=== PATIENT | female | born 1955 | race Caucasian/White ===

== ENCOUNTER 2019-08-02 22:40 | Emergency (ER) | payer SELFPAY ==
[2019-08-02] MEDS ORDERED: ONDANSETRON HCL INJ/PF 4 MG/2 ML SDV IV ONE (22:52)
[2019-08-02 23:43] LABS: ABSOLUTE BASOPHILS # (AUTO) 0.1 10^3/uL (0.0-0.2); ABSOLUTE EOSINOPHILS # (AUTO) 0.3 10^3/uL (0.0-0.6); ABSOLUTE LYMPHOCYTES (AUTO) 2.6 10^3/uL (0.5-4.7); ABSOLUTE MONOCYTES (AUTO) 0.8 10^3/uL (0.1-1.4); ABSOLUTE NEUT (AUTO) 9.2 10^3/uL (1.7-8.2); BASOPHILS % (AUTO) 0.4 % (0-2); HEMATOCRIT 39.6 % (36.0-47.0); HEMOGLOBIN 13.7 g/dL (12.0-15.5); LYMPHOCYTES % (AUTO) 20.3 % (13-45); MEAN CORPUSCULAR HEMOGLOBIN 28.2 pg (27.0-33.4); MEAN CORPUSCULAR HGB CONC 34.7 g/dL (32.0-36.0); MEAN CORPUSCULAR VOLUME 81 fl (80-97); MONOCYTES % (AUTO) 6.2 % (3-13); PLATELET COUNT 404 10^3/uL (150-450); RED BLOOD COUNT 4.86 10^6/uL (3.72-5.28); RED CELL DISTRIBUTION WIDTH 14.3 % (11.5-14.0); SEGMENTED NEUTROPHILS % (AUTO) 71.1 % (42-78); TOTAL CELLS COUNTED % (AUTO) 100 %; WHITE BLOOD COUNT 12.9 10^3/uL (4.0-10.5)
[2019-08-03 00:02] LABS: ALBUMIN 4.2 g/dL (3.5-5.0); ALKALINE PHOSPHATASE 81 U/L (38-126); ANION GAP 12 (5-19); ASPARTATE AMINO TRANSFERASE 14 U/L (14-36); BILIRUBIN,DIRECT 0.3 mg/dL (0.0-0.4); BILIRUBIN,TOTAL 0.4 mg/dL (0.2-1.3); BLOOD UREA NITROGEN 13 mg/dL (7-20); CALCIUM 9.8 mg/dL (8.4-10.2); CARBON DIOXIDE 26 mmol/L (22-30); CHLORIDE 95 mmol/L (98-107); GLUCOSE 162 mg/dL (75-110); POTASSIUM 3.9 mmol/L (3.6-5.0); TOTAL PROTEIN 7.1 g/dL (6.3-8.2)
[2019-08-03] MEDS ORDERED: MORPHINE SULFATE 10 MG/ML INJ IV ONE (00:15)
[2019-08-03] MEDS ORDERED: NORMAL SALINE 1000 ML 1,000 ML IV ONE (00:16)
--- NOTE | 2019-08-03 00:16 | ER Document Report ---
ED GI/ - General Chief Complaint: Nausea/Vomiting Stated Complaint: VOMITING,ABDOMINAL PAIN Time Seen by Provider: 08/03/19 00:07 Notes: Patient is a 64-year-old female that comes emergency department for chief complaint of abdominal pain in the mid upper abdomen that started 3 days ago, she states it started gradually, then worsen, she states it has become much more severe and she vomited 4 times over the course of the day. She has had normal bowel movements, denies diarrhea, denies hematochezia or hematemesis. She reports some chills but denies fever. She does report some flank pain. She has had an appendectomy, cholecystectomy, hysterectomy, and reports that she had a "pre-aneurysmal dilation of the abdominal aorta". She denies alcohol or history of pancreatitis. TRAVEL OUTSIDE OF THE [place] IN LAST 30 DAYS: No - Related Data Allergies/Adverse Reactions: No Known Allergies Allergy (Unverified 08/02/19 23:12) Past Medical History - General Information source: Patient - Social History Smoking Status: Current Every Day Smoker Smoking Education Provided: Yes - <3 min Frequency of alcohol use: None Drug Abuse: None Lives with: Family Family History: Reviewed & Not Pertinent Patient has suicidal ideation: No Patient has homicidal ideation: No - Past Medical History Cardiac Medical History: Reports: Hx Hypertension Endocrine Medical History: Reports: Hx Diabetes Mellitus Type 2 Musculoskeletal Medical History: Reports Hx Arthritis Past Surgical History: Reports: Hx Appendectomy, Hx Cholecystectomy, Hx Hysterectomy, Hx Orthopedic Surgery - bilateral knee, Hx Thyroid Surgery Review of Systems - Review of Systems Constitutional: No symptoms reported EENT: No symptoms reported Cardiovascular: No symptoms reported Respiratory: No symptoms reported Gastrointestinal: See HPI Genitourinary: No symptoms reported Female Genitourinary: No symptoms reported Musculoskeletal: No symptoms reported Skin: No symptoms reported Hematologic/Lymphatic: No symptoms reported Neurological/Psychological: No symptoms reported Physical Exam - Vital signs Vitals: Temp Pulse Resp BP Pulse Ox 99.3 F 105 H 13 169/76 H 96 08/02/19 23:10 08/02/19 23:10 08/02/19 23:10 08/02/19 23:10 08/02/19 23:10 - Notes Notes: GENERAL: Appears slightly anxious and somewhat uncomfortable but is not in severe distress HEAD: Normocephalic, atraumatic. EYES: Pupils equal, round, and reactive to light. Extraocular movements intact. ENT: Oral mucosa dry, tongue midline. Oropharynx unremarkable. Airway patent. General upper abdominal tenderness, LUNGS: Clear to auscultation bilaterally, no wheezes, rales, or rhonchi. No respiratory distress. HEART: Regular rate and rhythm. No murmur ABDOMEN: Generalized upper abdominal tenderness with wincing. Lower abdomen is completely benign. Bowel sounds present. No severe guarding or rigidity. GENITOURINARY: Deferred EXTREMITIES: Moves all 4 extremities spontaneously. No edema, normal radial and dorsalis pedis pulses bilaterally. No cyanosis. BACK: no cervical, thoracic, lumbar midline tenderness. No saddle anesthesia, normal distal neurovascular exam. Moves all extremities in full range of motion. NEUROLOGICAL: Alert and oriented x3. Normal speech. Cranial nerves II through XII grossly intact. PSYCH: Slightly anxious SKIN: Warm, dry, normal turgor. No rashes or lesions noted. Course - Re-evaluation Re-evalutation: Patient uncomfortable and has mid to upper abdominal tenderness on exam, lower abdomen is benign. She does have tenderness but she does not have severe guarding or rebound tenderness. Vital signs are unremarkable. CBC shows mild leukocytosis, nonspecific given vomiting. Given IV fluids and pain medications. Chemistry unremarkable including lipase, troponin negative, EKG nonspecific, urinalysis indicates infection possibly. She does not have lower abdominal tenderness or flank pain. Because of her symptoms, age, reported history of possible aortic aneurysm decision was made to CAT scan the patient. CAT scan negative for acute findings, shows incidental findings including small nodules and calcification, I provided patient with a copy of the report. I suspect patient has gastritis. Patient was given medications p.o. and tolerated this without difficulty, tolerating fluids as well. She will be discharged with treatment for gastritis, discussed expectations, follow-up, return precautions. Patient states appreciation and agreement. Stable and well-appearing at time of discharge. - Vital Signs Vital signs: Temp Pulse Resp BP Pulse Ox 98.1 F 84 18 161/76 H 95 08/03/19 05:15 08/03/19 05:15 08/03/19 05:15 08/03/19 05:15 08/03/19 05:15 - Laboratory Result Diagrams: 08/02/19 23:30 08/02/19 23:30 Laboratory results interpreted by me: 08/02/19 08/02/19 08/03/19 23:30 23:30 02:00 WBC 12.9 H RDW 14.3 H Absolute Neuts (auto) 9.2 H Sodium 132.5 L Chloride 95 L Creatinine 0.44 L Glucose 162 H Ur Leukocyte Esterase MODERATE H - EKG Interpretation by Me Additional EKG results interpreted by me: EKG shows sinus rhythm at a rate of 95, normal axis, no T wave inversions or ST segment changes in consecutive leads. QTC of 438. Discharge - Discharge Clinical Impression: Upper abdominal pain Vomiting Qualifiers: Vomiting type: unspecified Vomiting Intractability: non-intractable Nausea pre sence: with nausea Qualified Code(s): R11.2 - Nausea with vomiting, unspecified Condition: Stable Disposition: HOME, SELF-CARE Additional Instructions: Your CAT scan does not show any concerning findings, your work-up is reassuring. Your symptoms and examination indicate gastritis/esophagitis (inflammation of your upper gastrointestinal tract). Take Phenergan for nausea, take Carafate and Pepcid as prescribed to help treat this, you can take the pain medication given and also additional Rolaids, Tums, Maalox, etc. if needed. You can take Tylenol for pain. Avoid NSAIDs, alcohol, smoking, caffeine, spicy food. Start with clear fluids, progress to bland diet. You appear to have a developing urinary tract infection as well, take Keflex as prescribed, we have a urine culture pending. Follow-up with primary care for additional evaluation and treatment including possible H. pylori testing or even endoscopy. Return if you worsen including uncontrolled vomiting, vomiting blood, black stools, severe pain, fever of 100.4 or greater, or any other concerning or worsening symptoms. Prescriptions: Sucralfate [Carafate 1 gm Tablet] 1 gm PO QID #20 tablet Cephalexin Monohydrate [Keflex 500 mg Capsule] 500 mg PO BID 7 Days #14 capsule Famotidine [Pepcid 20 mg Tablet] 20 mg PO BID #20 tablet Promethazine HCl [Phenergan 25 mg Tablet] 25 mg PO Q6H PRN #20 tablet PRN Reason:
[2019-08-03] MEDS ORDERED: METOCLOPRAMIDE HCL INJ/PF 10 MG/2 ML SDV IV ONE (00:42)
[2019-08-03] MEDS ORDERED: DIPHENHYDRAMINE HCL 50 MG/ML VIAL IV ONE (00:42)
[2019-08-03] MEDS ORDERED: HYDROMORPHONE HCL INJ/PF 2 MG/ML AMPULE IV ONE (01:46)
[2019-08-03 02:50] LABS: APPEARANCE,URINE CLEAR; BILIRUBIN,URINE NEGATIVE (NEGATIVE); COLOR,URINE YELLOW; GLUCOSE, URINE NEGATIVE (NEGATIVE); KETONES,URINE NEGATIVE (NEGATIVE); LEUKOCYTE ESTERASE,URINE MODERATE (NEGATIVE); NITRITE,URINE NEGATIVE (NEGATIVE); PROTEIN,URINE NEGATIVE (NEGATIVE); URINE SPECIFIC GRAVITY 1.012; UROBILINOGEN,URINE NEGATIVE mg/dL (<2.0)
--- NOTE | 2019-08-03 04:21 | RADIOLOGY REPORT (SQ) ---
CT abdomen and pelvis with contrast on 08/03/2019 3:31 AM CLINICAL INDICATION: Periumbilical abdominal pain radiating to back, vomiting TECHNIQUE: Multiple axial images are obtained throughout the abdomen and pelvis following the administration of IV contrast, 80 mL of Omnipaque 350 contrast was administered intravenously without complication. This exam was performed according to our departmental dose-optimization program, which includes automated exposure control, adjustment of the mA and/or kV according to patient size and/or use of iterative reconstruction technique. Total DLP is 2036.6 mGy*cm. COMPARISON: None FINDINGS: Abdomen: There are a few tiny less than 5 mm pulmonary nodules in the lung bases with no follow-up recommended per Fleischner Society recommendations 2017. There is minimal basilar atelectasis and/or scarring. Vascular calcifications are noted. The patient is status post cholecystectomy. Small bilateral parapelvic renal cysts are noted. Solid abdominal organs are otherwise unremarkable. There is no abdominal adenopathy. There is no free fluid or free air within the abdomen. The abdominal portion of the GI tract is unremarkable. Pelvis: The patient is status post hysterectomy. There is no free fluid in the pelvis. There is no pelvic adenopathy. The appendix is not visualized but no pericecal inflammatory changes are noted. Pelvic portion of the GI tract is unremarkable. Degenerative changes are noted in the spine. IMPRESSION: No acute abnormality.
[2019-08-03] MEDS ORDERED: FAMOTIDINE 20 MG TABLET PO ONE (04:30)
[2019-08-03] MEDS ORDERED: SUCRALFATE 1 GM TABLET PO ONE (04:30)
[2019-08-03] MEDS ORDERED: OXYCODONE-ACETAMINOPHEN 5-325 MG TABLET PO ONE (04:30)
[2019-08-03] MEDS ORDERED: HYDROCODONE/ACETAMINOPHEN 5-325 MG (6 TAB/ER DISP) PO PRN (04:57)
[2019-08-03 05:43] VITALS: BP 161/76
--- NOTE | 2019-08-03 17:06 | EKG REPORT ---
SEVERITY:- BORDERLINE ECG - SINUS RHYTHM BORDERLINE R WAVE PROGRESSION, ANTERIOR LEADS : Confirmed by: Belen Jurado MD 03-Aug-2019 17:05:49
== END 2019-08-03 05:15 | disposition home or self-care (01) ==
LOC: ER 22:40
DX: R10.10 Upper abdominal pain, unspecified (principal); R11.2 Nausea with vomiting, unspecified; Z90.49 Acquired absence of other specified parts of digestive tract; Z90.710 Acquired absence of both cervix and uterus; F17.200 Nicotine dependence, unspecified, uncomplicated; I10 Essential (primary) hypertension; E11.9 Type 2 diabetes mellitus without complications; F41.9 Anxiety disorder, unspecified
CPT/HCPCS: 93005; 99284; 96361; 96374; 96375; 36415; 87086; 83690; 85025; 80053; 81001; 84484; 74177; 93010; J1200; J2765; J2270; J1170; J2405; J7030

== ENCOUNTER 2019-08-19 10:46 | Inpatient (IN) | payer SELFPAY ==
--- NOTE | 2019-08-19 11:44 | ER Document Report ---
ED Medical Screen (RME) - General Chief Complaint: Abdominal Pain Stated Complaint: ABDOMINAL PAIN/BACK PAIN Time Seen by Provider: 08/19/19 11:38 Mode of Arrival: Ambulatory Information source: Patient TRAVEL OUTSIDE OF THE [place] IN LAST 30 DAYS: No - HPI Onset: Other - Progressive over 2 weeks Quality of pain: Cramping Pain Level: 3 - Related Data Allergies/Adverse Reactions: No Known Allergies Allergy (Unverified 08/02/19 23:12) Past Medical History - Past Medical History Cardiac Medical History: Reports: Hx Hypertension Endocrine Medical History: Reports: Hx Diabetes Mellitus Type 2 Musculoskeltal Medical History: Reports Hx Arthritis Past Surgical History: Reports: Hx Appendectomy, Hx Cholecystectomy, Hx H ysterectomy, Hx Orthopedic Surgery - bilateral knee, Hx Thyroid Surgery Physical Exam - Vital signs Vitals: Temp Pulse Resp BP Pulse Ox 97.5 F 99 16 184/79 H 97 08/19/19 10:51 08/19/19 10:51 08/19/19 10:51 08/19/19 10:51 08/19/19 10:51 - Abdominal Notes: This is a 64-year-old female who presented to the emergency room 2 weeks ago stating that she had abdominal pain they performed a CAT scan and she was told that she had gastritis as well as the beginnings of a UTI. She has not received any discomfort relief at all from medications provided that day and has in fact only gotten worse. She now has difficulty urinating. In the RME process it was determined to get lab work fluids and an x-ray for the provider in the back to determine whether or not they wanted to repeat the CAT scan. Course - Vital Signs Vital signs: Temp Pulse Resp BP Pulse Ox 97.5 F 99 16 184/79 H 97 08/19/19 10:51 08/19/19 10:51 08/19/19 10:51 08/19/19 10:51 08/19/19 10:51
[2019-08-19] MEDS ORDERED: CEFTRIAXONE INJ 1000 MG VIAL IM ONE (11:49)
[2019-08-19] MEDS ORDERED: NORMAL SALINE 1000 ML 1,000 ML IV PRN (11:49)
[2019-08-19] MEDS ORDERED: CEFTRIAXONE INJ 1000 MG VIAL IV ONE (11:59)
[2019-08-19] MEDS ORDERED: METOCLOPRAMIDE HCL INJ/PF 10 MG/2 ML SDV IV ONE (12:00)
--- NOTE | 2019-08-19 12:18 | RADIOLOGY REPORT (SQ) ---
EXAM DESCRIPTION: KUB/ABDOMEN (SINGLE VIEW) COMPLETED DATE/TIME: 08/19/2019 12:09 pm REASON FOR STUDY: pain COMPARISON: None. NUMBER OF VIEWS: One view. TECHNIQUE: Supine radiographic image of the abdomen acquired. LIMITATIONS: None. FINDINGS: BOWEL GAS PATTERN: Normal bowel gas pattern. No dilated loops. CALCIFICATIONS: No suspicious calcifications. SOFT TISSUES: No gross mass or suggestion of organomegaly. HARDWARE: None in the abdomen. BONES: No acute fracture. No worrisome bone lesions. OTHER: No other significant finding. IMPRESSION: NO RADIOGRAPHIC EVIDENCE FOR ACUTE ABDOMINAL DISEASE. TECHNICAL DOCUMENTATION: JOB ID: [id number] 2010 [employer]- All Rights Reserved Reading location - IP/workstation name: [email or web address]
[2019-08-19 12:40] LABS: APPEARANCE,URINE SLIGHTLY-CLOUDY; BILIRUBIN,URINE NEGATIVE (NEGATIVE); COLOR,URINE YELLOW; GLUCOSE, URINE NEGATIVE (NEGATIVE); KETONES,URINE 80 mg/dL (NEGATIVE); LEUKOCYTE ESTERASE,URINE SMALL (NEGATIVE); NITRITE,URINE NEGATIVE (NEGATIVE); PROTEIN,URINE NEGATIVE (NEGATIVE); URINE SPECIFIC GRAVITY 1.017; UROBILINOGEN,URINE NEGATIVE mg/dL (<2.0)
[2019-08-19 12:47] LABS: ADD MANUAL MICROSCOPIC YES
[2019-08-19] MEDS ORDERED: ONDANSETRON HCL 8 MG TABLET PO ONE (13:18)
[2019-08-19 13:41] LABS: ABSOLUTE BASOPHILS # (AUTO) 0.1 10^3/uL (0.0-0.2); ABSOLUTE EOSINOPHILS # (AUTO) 0.2 10^3/uL (0.0-0.6); ABSOLUTE LYMPHOCYTES (AUTO) 1.6 10^3/uL (0.5-4.7); ABSOLUTE MONOCYTES (AUTO) 0.7 10^3/uL (0.1-1.4); ABSOLUTE NEUT (AUTO) 9.7 10^3/uL (1.7-8.2); BASOPHILS % (AUTO) 0.8 % (0-2); EOSINOPHILS % (AUTO) 1.4 % (0-6); HEMATOCRIT 43.1 % (36.0-47.0); HEMOGLOBIN 14.9 g/dL (12.0-15.5); LYMPHOCYTES % (AUTO) 13.2 % (13-45); MEAN CORPUSCULAR HEMOGLOBIN 27.8 pg (27.0-33.4); MEAN CORPUSCULAR HGB CONC 34.6 g/dL (32.0-36.0); MEAN CORPUSCULAR VOLUME 81 fl (80-97); MONOCYTES % (AUTO) 5.6 % (3-13); PLATELET COUNT 471 10^3/uL (150-450); RED BLOOD COUNT 5.35 10^6/uL (3.72-5.28); TOTAL CELLS COUNTED % (AUTO) 100 %; WHITE BLOOD COUNT 12.2 10^3/uL (4.0-10.5)
[2019-08-19 13:42] LABS: ALBUMIN 4.2 g/dL (3.5-5.0); ALKALINE PHOSPHATASE 80 U/L (38-126); ANION GAP 10 (5-19); ASPARTATE AMINO TRANSFERASE 14 U/L (14-36); BILIRUBIN,TOTAL 0.4 mg/dL (0.2-1.3); BLOOD UREA NITROGEN 12 mg/dL (7-20); CALCIUM 9.7 mg/dL (8.4-10.2); CARBON DIOXIDE 31 mmol/L (22-30); CHLORIDE 82 mmol/L (98-107); GLUCOSE 148 mg/dL (75-110); POTASSIUM 4.8 mmol/L (3.6-5.0); TOTAL PROTEIN 6.7 g/dL (6.3-8.2)
--- NOTE | 2019-08-19 13:42 | ER Document Report ---
ED General - General Chief Complaint: Abdominal Pain Stated Complaint: ABDOMINAL PAIN/BACK PAIN Time Seen by Provider: 08/19/19 11:38 Mode of Arrival: Ambulatory Notes: Patient is a 64-year-old white female with a past medical history of diabetes, hypertension, status post cholecystectomy, appendectomy and hysterectomy who presents to the emergency department the chief complaint of upper abdominal discomfort. The patient notes that she was here at the end of July for the same complaint. States that since that time her symptoms have returned and worsened. She states after her visit here she was taking the medications prescribed, seem to be improving some while maintaining a clear liquid diet. She states after trying to eat some "raw vegetables" as her first introductory food after a clear liquid diet she began to feel bad again. She describes a right upper abdominal discomfort that waxes and wanes. States it is associated with nausea and vomiting. Denies any diarrhea or constipation. Denies any fever or recent travel. Denies any history of cardiovascular disease. TRAVEL OUTSIDE OF THE [place] IN LAST 30 DAYS: No - Related Data Allergies/Adverse Reactions: No Known Allergies Allergy (Unverified 08/02/19 23:12) Past Medical History - General Information source: Patient - Social History Smoking Status: Current Every Day Smoker Family History: Reviewed & Not Pertinent Patient has suicidal ideation: No Patient has homicidal ideation: No - Past Medical History Cardiac Medical History: Reports: Hx Hypertension Endocrine Medical History: Reports: Hx Diabetes Mellitus Type 2 Musculoskeletal Medical History: Reports Hx Arthritis Past Surgical History: Reports: Hx Appendectomy, Hx Cholecystectomy, Hx Hysterectomy, Hx Orthopedic Surgery - bilateral knee, Hx Thyroid Surgery Review of Systems - Review of Systems Gastrointestinal: Abdominal pain, Nausea, Vomiting -: Yes All other systems reviewed and negative Physical Exam - Vital signs Vitals: Temp Pulse Resp BP Pulse Ox 97.5 F 99 16 184/79 H 97 08/19/19 10:51 08/19/19 10:51 08/19/19 10:51 08/19/19 10:51 08/19/19 10:51 - General General appearance: Appears well, Alert In distress: None - HEENT Head: Normocephalic, Atraumatic Eyes: Normal Pupils: PERRL Ears: Normal Tympanic membrane: Normal Nasal: Normal Mouth/Lips: Normal Mucous membranes: Normal Pharynx: Normal Neck: Normal - Respiratory Respiratory status: No respiratory distress Chest status: Nontender Breath sounds: Normal Chest palpation: Normal - Cardiovascular Rhythm: Regular Heart sounds: Normal auscultation - Abdominal Inspection: Normal Distension: No distension Bowel sounds: Normal Tenderness: Tender - Right upper quadrant, right lower quadrant and left lower quadrant - Back Back: No: CVA tenderness - Neurological Neuro grossly intact: Yes Cognition: Normal Orientation: AAOx4 Clymer Coma Scale Eye Opening: Spontaneous Jayla Coma Scale Verbal: Oriented Clymer Coma Scale Motor: Obeys Commands Clymer Coma Scale Total: 15 Speech: Normal - Psychological Associated symptoms: Normal affect, Normal mood - Skin Skin Temperature: Warm Skin Moisture: Dry Skin Color: Normal Course - Re-evaluation Re-evalutation: 08/19/19 18:[address] Ashby, he will admit the patient in relation to her hyponatremia and intractable nausea and vomiting. Patient stable for admission at this time. - Vital Signs Vital signs: Temp Pulse Resp BP Pulse Ox 97.5 F 99 16 184/79 H 97 08/19/19 10:51 08/19/19 10:51 08/19/19 10:51 08/19/19 10:51 08/19/19 10:51 - Laboratory Result Diagrams: 08/19/19 13:00 08/19/19 17:25 Laboratory results interpreted by me: 08/19/19 08/19/19 08/19/19 12:08 13:00 13:00 WBC 12.2 H RBC 5.35 H Plt Count 471 H Absolute Neuts (auto) 9.7 H Seg Neutrophils % 79.0 H Sodium 123.3 L Chloride 82 L Carbon Dioxide 31 H Creatinine Glucose 148 H AST Creatine Kinase Lipase 498.9 H Urine Ketones 80 H Ur Leukocyte Esterase SMALL H 08/19/19 08/19/19 13:00 17:25 WBC RBC Plt Count Absolute Neuts (auto) Seg Neutrophils % Sodium 125.8 L Chloride 88 L Carbon Dioxide Creatinine 0.47 L Glucose 129 H AST 13 L Creatine Kinase < 20 L Lipase 1153.0 H Urine Ketones Ur Leukocyte Esterase Discharge - Discharge Clinical Impression: Hyponatremia, Intractable nausea and vomiting, Elevated lipase Abdominal pain Qualifiers: Abdominal location: upper abdomen, unspecified Qualified Code(s): R10.10 - Upper abdominal pain, unspecified Disposition: ADMITTED INPATIENT Admitting Provider: Symone (Hospitalist) Unit Admitted: Medical Floor
[2019-08-19 14:55] LABS: URINE AMPHETAMINES SCREEN NEGATIVE; URINE BARBITURATES SCREEN NEGATIVE; URINE COCAINE SCREEN NEGATIVE; URINE MARIJUANA (THC) SCREEN NEGATIVE; URINE METHADONE SCREEN NEGATIVE; URINE PHENCYCLIDINE SCREEN NEGATIVE
[2019-08-19 14:56] LABS: URINE BENZODIAZEPINES SCREEN UNCONFIRMED POSITIVE
[2019-08-19] MEDS ORDERED: NORMAL SALINE 1000 ML 1,000 ML IV ONE (15:18)
[2019-08-19] MEDS ORDERED: MORPHINE SULFATE 10 MG/ML INJ IV ONE (15:22)
[2019-08-19] MEDS ORDERED: PROMETHAZINE HCL 25 MG TABLET PO ONE (15:22)
[2019-08-19 15:56] LABS: VENOUS BLOOD BASE EXCESS -0.7 mmol/L; VENOUS BLOOD HCO3 24.3 mmol/L (20-32); VENOUS BLOOD PCO2 41.6 mmHg (35-63); VENOUS BLOOD PH 7.39 (7.30-7.42)
[2019-08-19] MEDS ORDERED: LORAZEPAM INJ 2 MG/1 ML VIAL IV ONE (17:42)
[2019-08-19 17:57] LABS: ALBUMIN 3.8 g/dL (3.5-5.0); ALKALINE PHOSPHATASE 79 U/L (38-126); ANION GAP 12 (5-19); ASPARTATE AMINO TRANSFERASE 13 U/L (14-36); BILIRUBIN,DIRECT 0.3 mg/dL (0.0-0.4); BILIRUBIN,TOTAL 0.3 mg/dL (0.2-1.3); BLOOD UREA NITROGEN 9 mg/dL (7-20); CALCIUM 8.8 mg/dL (8.4-10.2); CARBON DIOXIDE 26 mmol/L (22-30); CHLORIDE 88 mmol/L (98-107); GLUCOSE 129 mg/dL (75-110); POTASSIUM 4.1 mmol/L (3.6-5.0); TOTAL PROTEIN 6.6 g/dL (6.3-8.2)
[2019-08-19] MEDS ORDERED: METOCLOPRAMIDE HCL INJ/PF 10 MG/2 ML SDV IV PRN (18:37)
[2019-08-19] MEDS ORDERED: PROMETHAZINE HCL INJ 25 MG/1 ML VIAL IV PRN (18:37)
[2019-08-19] MEDS ORDERED: MAG HYDROX/AL HYDROX/SIMETH SUSP 30 ML UDCUP PO PRN (18:37)
[2019-08-19] MEDS ORDERED: MORPHINE SULFATE 10 MG/ML INJ IV PRN ×2 (18:44)
[2019-08-19] MEDS ORDERED: GLUCAGON,HUMAN RECOMB 1 MG INJ SUBCUT PRN (18:45)
[2019-08-19] MEDS ORDERED: DEXTROSE 40% GEL 15 GM TUBE PO PRN ×2 (18:45)
[2019-08-19] MEDS ORDERED: DEXTROSE 50%-WATER 25 GM/50 ML DISP.SYRIN IV PRN ×2 (18:45)
--- NOTE | 2019-08-19 19:02 | PDOC H&P ---
History of Present Illness Admission Date/PCP: 08/19/19 18:26 Patient complains of: Abdominal pain, nausea vomiting History of Present Illness: YAZMIN COON is a 64 year old female with a history of type 2 diabetes mellitus, hypertension who presents to the hospital with unresolved nausea and vomiting as well as right upper quadrant and epigastric pain. Her symptoms have been persisting for close to a month now. Complains of several episodes of nonb ilious nonbloody vomiting which worsened yesterday as well as some episodes of dry retching. Abdominal pain is described as a stabbing pain radiating to the back. Denies any fever or chills. Denies any urinary symptoms. Has had poor oral intake due to persistence of nausea and vomiting. Patient evaluated in the ER on 08/02/2019 for similar complaints at that time had no elevation in lipase. Past Medical History Cardiac Medical History: Reports: Hypertension Endocrine Medical History: Reports: Diabetes Mellitus Type 2 Musculoskeltal Medical History: Reports: Arthritis Past Surgical History Past Surgical History: Reports: Appendectomy, Cholecystectomy, Hysterectomy, Orthopedic Surgery - bilateral knee Social History Smoking Status: Current Every Day Smoker Frequency of Alcohol Use: Rare Hx Recreational Drug Use: No Hx Prescription Drug Abuse: No - Advance Directive Resuscitation Status: Full Code Family History Family History: DM, Hypertension Parental Family History Reviewed: Yes Children Family History Reviewed: NA Sibling(s) Family History Reviewed.: Yes Medication/Allergy Home Medications: Cephalexin Monohydrate [Keflex 500 mg Capsule] 500 mg PO BID 7 Days #14 capsule 08/03/19 Famotidine [Pepcid 20 mg Tablet] 20 mg PO BID #20 tablet 08/03/19 Promethazine HCl [Phenergan 25 mg Tablet] 25 mg PO Q6H PRN #20 tablet 08/03/19 Sucralfate [Carafate 1 gm Tablet] 1 gm PO QID #20 tablet 08/03/19 Allergies/Adverse Reactions: No Known Allergies Allergy (Unverified 08/02/19 23:12) Review of Systems Constitutional: PRESENT: fatigue. ABSENT: anorexia, fever(s) Eyes: ABSENT: visual disturbances Nose, Mouth, and Throat: ABSENT: headache(s) Cardiovascular: ABSENT: chest pain Respiratory: ABSENT: cough, dyspnea Gastrointestinal: PRESENT: abdominal pain, bloating, nausea, vomiting. ABSENT: coffee ground emesis, constipation, diarrhea, hematemesis, hematochezia, melena Integumentary: ABSENT: diaphoresis Neurological: ABSENT: confusion Psychiatric: PRESENT: anxiety Endocrine: ABSENT: polyuria Hematologic/Lymphatic: ABSENT: easy bleeding Physical Exam Vital Signs: Temp Pulse Resp BP Pulse Ox 97.5 F 99 16 184/79 H 97 08/19/19 10:51 08/19/19 10:51 08/19/19 10:51 08/19/19 10:51 08/19/19 10:51 Intake & Output 08/18/19 08/19/19 08/20/19 06:59 06:59 06:59 Intake Total 1999 Balance 1999 Weight 82.6 kg General appearance: PRESENT: no acute distress, cooperative Head exam: PRESENT: normocephalic Eye exam: PRESENT: EOMI Mouth exam: PRESENT: neck supple Neck exam: ABSENT: JVD Respiratory exam: PRESENT: clear to auscultation manuela, unlabored. ABSENT: tachypnea, wheezes Cardiovascular exam: PRESENT: +S1, +S2. ABSENT: diastolic murmur, systolic murmur, tachycardia GI/Abdominal exam: PRESENT: soft, tenderness - Upper abdomen mostly epigastric and RUQ. ABSENT: distended, firm, guarding, rebound, rigid Extremities exam: ABSENT: calf tenderness, pedal edema Musculoskeletal exam: PRESENT: ambulatory Neurological exam: PRESENT: alert, awake, oriented to person, oriented to place, oriented to time Psychiatric exam: ABSENT: agitated, anxious Focused psych exam: ABSENT: pressured speech Skin exam: ABSENT: jaundice Results Laboratory Results: 08/19/19 13:00 08/19/19 17:25 08/19/19 08/19/19 08/19/19 12:08 13:00 13:00 WBC 12.2 H RBC 5.35 H Hgb 14.9 Hct 43.1 MCV 81 MCH 27.8 MCHC 34.6 RDW 14.0 Plt Count 471 H Seg Neutrophils % 79.0 H VBG pH VBG pCO2 VBG HCO3 VBG Base Excess Sodium 123.3 L Potassium 4.8 Chloride 82 L Carbon Dioxide 31 H Anion Gap 10 BUN 12 Creatinine 0.54 Est GFR ( Amer) > 60 Glucose 148 H Calcium 9.7 Total Bilirubin 0.4 AST 14 Alkaline Phosphatase 80 Total Protein 6.7 Albumin 4.2 Lipase 498.9 H Urine Color YELLOW Urine Appearance SLIGHTLY-CLOUDY Urine pH 7.0 Ur Specific Goodman 1.017 Urine Protein NEGATIVE Urine Glucose (UA) NEGATIVE Urine Ketones 80 H Urine Blood NEGATIVE Urine Nitrite NEGATIVE Ur Leukocyte Esterase SMALL H Ur Squamous Epith Cells MANY 08/19/19 08/19/19 15:44 17:25 WBC RBC Hgb Hct MCV MCH MCHC RDW Plt Count Seg Neutrophils % VBG pH 7.39 VBG pCO2 41.6 VBG HCO3 24.3 VBG Base Excess -0.7 Sodium 125.8 L Potassium 4.1 Chloride 88 L Carbon Dioxide 26 Anion Gap 12 BUN 9 Creatinine 0.47 L Est GFR ( Amer) > 60 Glucose 129 H Calcium 8.8 Total Bilirubin 0.3 AST 13 L Alkaline Phosphatase 79 Total Protein 6.6 Albumin 3.8 Lipase 1153.0 H Urine Color Urine Appearance Urine pH Ur Specific Goodman Urine Protein Urine Glucose (UA) Urine Ketones Urine Blood Urine Nitrite Ur Leukocyte Esterase Ur Squamous Epith Cells 08/19/19 08/19/19 13:00 13:00 Creatine Kinase < 20 L Troponin I < 0.012 Impressions: KUB X-Ray 08/19/19 11:49 IMPRESSION: NO RADIOGRAPHIC EVIDENCE FOR ACUTE ABDOMINAL DISEASE. Assessment and Plan - Diagnosis (1) Hyponatremia Is this a current diagnosis for this admission?: Yes Plan: Likely secondary to hypovolemia and poor caloric intake. No evidence of fluid overload at this time. Will check BMP in the morning after hydrating with normal saline. Check serum osmolarity as well as urine osmolarity and sodium. (2) Intractable nausea and vomiting Is this a current diagnosis for this admission?: Yes Plan: UDS unimpressive. No evidence of anion gap. Urinalysis showed evidence of starvation ketosis. Potential differentials include acute pancreatitis or biliary tract disease or diabetic gastroparesis. Will place on IV fluids, antiemetics including IV Reglan (3) Abdominal pain Qualifiers: Abdominal location: upper abdomen, unspecified Qualified Code(s): R10.10 - Upper abdominal pain, unspecified Is this a current diagnosis for this admission?: Yes Plan: Potentially secondary to acute pancreatitis or biliary tract disease. Lipase elevation noted on this admission. CT abdomen pelvis done on 08/02/2019 was normal. Abdominal pain pattern somewhat suspicious for pancreatitis. Will investigate further with ultrasound of the right upper quadrant Aggressive IV fluids Morphine IV for pain IV Pepcid (4) Hypertension Qualifiers: Hypertension type: essential hypertension Qualified Code(s): I10 - Essential (primary) hypertension Is this a current diagnosis for this admission?: Yes Plan: Lisinopril hydrochlorothiazide (5) Diabetes mellitus type 2 in obese Is this a current diagnosis for this admission?: Yes Plan: Hold metformin in case control study is needed. Hold glyburide for now given poor p.o. intake. Sliding scale insulin and Accu-Cheks - Time Time Spent with patient: 35 or more minutes
[2019-08-19] MEDS: NORMAL SALINE 1000 ML 1,000 ML IV PRN (19:03)
[2019-08-19] MEDS: PROMETHAZINE HCL INJ 25 MG/1 ML VIAL IV PRN (19:05)
[2019-08-19] MEDS ORDERED: HYDROCHLOROTHIAZIDE 25 MG TABLET PO SCH (19:15)
[2019-08-19] MEDS: LISINOPRIL 10 MG TABLET PO SCH (19:53)
[2019-08-19 20:55] LABS: URINE SODIUM 155 mmol/L (30-90)
[2019-08-19 20:56] LABS: OSMOLALITY,URINE 639 mOsm/kg (300-900)
[2019-08-19] MEDS: FAMOTIDINE INJ/PF 20 MG/2 ML SDV IV SCH (21:04)
[2019-08-19] MEDS: TEMAZEPAM 7.5 MG CAPSULE PO PRN (21:05)
--- NOTE | 2019-08-19 21:11 | RADIOLOGY REPORT (SQ) ---
EXAM DESCRIPTION: US ABDOMEN DOPPLER LIMITED COMPLETED DATE/TME: 08/19/2019 00:00 CLINICAL HISTORY: 64 years, Female, RUQ Pain/ n/v COMPARISON: Prior CT dated 08/03/2019. TECHNIQUE: Axial 2-D grayscale images of the abdomen were acquired. Doppler was utilized. LIMITATIONS: None. FINDINGS: Visualized portions of the pancreas appear normal in echogenicity. Abdominal aortic measurements are as follows: Proximal: 2.1 cm Mid: 1.8 cm Distal: 1.6 cm Visualized portions of the IVC appear normal. Liver is diffusely echogenic. It measures 17.5 cm in length. Antegrade flow is documented within the main portal vein. No focal liver lesions are appreciated. The gallbladder is absent. Common bile duct measures 1.3 cm in diameter. This appears similar to the previous CT dated 08/03/2019. Right kidney measures 9.9 x 4.5 cm in size. No hydronephrosis. No significant free fluid is identified within the imaged upper abdomen. IMPRESSION: Dilated common bile duct measuring up to 1.3 cm in size. This is most likely related to prior cholecystectomy, and appears unchanged from 08/03/2019. However, correlation for obstructive laboratories is suggested. Echogenic liver, suggestive of hepatic steatosis. copyright 2010 [employer]- All Rights Reserved
[2019-08-20] MEDS: INSULIN LISPRO 100 UNIT/ML 3 ML VIAL SUBCUT SCH ×5 (00:04→23:17)
[2019-08-20] MEDS: NORMAL SALINE 1000 ML 1,000 ML IV PRN (02:48)
[2019-08-20 06:14] LABS: ABSOLUTE BASOPHILS # (AUTO) 0.1 10^3/uL (0.0-0.2); ABSOLUTE EOSINOPHILS # (AUTO) 0.2 10^3/uL (0.0-0.6); ABSOLUTE LYMPHOCYTES (AUTO) 1.7 10^3/uL (0.5-4.7); ABSOLUTE MONOCYTES (AUTO) 0.9 10^3/uL (0.1-1.4); ABSOLUTE NEUT (AUTO) 9.4 10^3/uL (1.7-8.2); BASOPHILS % (AUTO) 0.7 % (0-2); EOSINOPHILS % (AUTO) 1.5 % (0-6); HEMATOCRIT 40.3 % (36.0-47.0); LYMPHOCYTES % (AUTO) 13.9 % (13-45); MEAN CORPUSCULAR HEMOGLOBIN 27.8 pg (27.0-33.4); MEAN CORPUSCULAR HGB CONC 34.8 g/dL (32.0-36.0); MEAN CORPUSCULAR VOLUME 80 fl (80-97); MONOCYTES % (AUTO) 7.1 % (3-13); PLATELET COUNT 438 10^3/uL (150-450); RED BLOOD COUNT 5.03 10^6/uL (3.72-5.28); RED CELL DISTRIBUTION WIDTH 13.9 % (11.5-14.0); SEGMENTED NEUTROPHILS % (AUTO) 76.8 % (42-78); TOTAL CELLS COUNTED % (AUTO) 100 %; WHITE BLOOD COUNT 12.3 10^3/uL (4.0-10.5)
[2019-08-20 06:32] LABS: ALKALINE PHOSPHATASE 79 U/L (38-126); ANION GAP 14 (5-19); ASPARTATE AMINO TRANSFERASE 14 U/L (14-36); BILIRUBIN,DIRECT 0.1 mg/dL (0.0-0.4); BILIRUBIN,TOTAL 0.4 mg/dL (0.2-1.3); BLOOD UREA NITROGEN 6 mg/dL (7-20); CALCIUM 9.2 mg/dL (8.4-10.2); CARBON DIOXIDE 24 mmol/L (22-30); CHLORIDE 86 mmol/L (98-107); CHOLESTEROL 173.62 mg/dL (0-200); GLUCOSE 156 mg/dL (75-110); PHOSPHORUS 3.1 mg/dL (2.5-4.5); POTASSIUM 4.1 mmol/L (3.6-5.0); TOTAL PROTEIN 6.6 g/dL (6.3-8.2); TRIGLYCERIDES 128 mg/dL (<150)
[2019-08-20 06:43] LABS: DIRECT LDL 102 mg/dL (<100)
[2019-08-20] MEDS: LISINOPRIL 10 MG TABLET PO SCH (09:19)
[2019-08-20] MEDS: AMLODIPINE BESYLATE 5 MG TABLET PO SCH (09:20)
[2019-08-20] MEDS: FAMOTIDINE INJ/PF 20 MG/2 ML SDV IV SCH ×2 (09:20→21:52)
[2019-08-20] MEDS: ENOXAPARIN SODIUM INJ 40 MG/0.4 ML DISP.SYRIN SUBCUT SCH (09:24)
--- NOTE | 2019-08-20 13:12 | PDOC PROGRESS REPORT ---
Subjective Progress Note for:: 08/20/19 Subjective:: Patient's nausea seems to have improved today. She still experiencing some abdominal pain but improved. Reason For Visit: HYPOTREMIA,INTRACTABLE VOMITING,ABDOMINAL PAIN, Physical Exam Vital Signs: Temp Pulse Resp BP Pulse Ox 98.9 F 103 H 15 179/79 H 97 08/20/19 08:00 08/20/19 08:00 08/20/19 08:00 08/20/19 08:00 08/20/19 08:00 Intake & Output 08/19/19 08/20/19 08/21/19 06:59 06:59 06:59 Intake Total 3000 Balance 3000 Weight 84.6 kg General appearance: PRESENT: no acute distress, cooperative Neck exam: ABSENT: JVD Respiratory exam: PRESENT: clear to auscultation manuela, unlabored. ABSENT: tachypnea, wheezes Cardiovascular exam: PRESENT: RRR, +S1, +S2. ABSENT: tachycardia GI/Abdominal exam: PRESENT: normal bowel sounds, soft, tenderness. ABSENT: distended, firm, guarding, rebound, rigid Neurological exam: PRESENT: alert, awake, oriented to person, oriented to place, oriented to time Results Laboratory Results: 08/20/19 05:01 08/20/19 05:01 08/19/19 08/19/19 08/19/19 12:08 12:08 13:00 WBC 12.2 H RBC 5.35 H Hgb 14.9 Hct 43.1 MCV 81 MCH 27.8 MCHC 34.6 RDW 14.0 Plt Count 471 H Seg Neutrophils % 79.0 H VBG pH VBG pCO2 VBG HCO3 VBG Base Excess Sodium Potassium Chloride Carbon Dioxide Anion Gap BUN Creatinine Est GFR ( Amer) Glucose Serum Osmolality Calcium Phosphorus Magnesium Total Bilirubin AST Alkaline Phosphatase Total Protein Albumin Triglycerides Cholesterol LDL Cholesterol Direct VLDL Cholesterol HDL Cholesterol Lipase TSH Urine Color YELLOW Urine Appearance SLIGHTLY-CLOUDY Urine pH 7.0 Ur Specific [place] 1.017 Urine Protein NEGATIVE Urine Glucose (UA) NEGATIVE Urine Ketones 80 H Urine Blood NEGATIVE Urine Nitrite NEGATIVE Ur Leukocyte Esterase SMALL H Ur Squamous Epith Cells MANY Urine Osmolality 639 08/19/19 08/19/19 08/19/19 13:00 13:00 15:44 WBC RBC Hgb Hct MCV MCH MCHC RDW Plt Count Seg Neutrophils % VBG pH 7.39 VBG pCO2 41.6 VBG HCO3 24.3 VBG Base Excess -0.7 Sodium 123.3 L Potassium 4.8 Chloride 82 L Carbon Dioxide 31 H Anion Gap 10 BUN 12 Creatinine 0.54 Est GFR ( Amer) > 60 Glucose 148 H Serum Osmolality 256 L Calcium 9.7 Phosphorus Magnesium Total Bilirubin 0.4 AST 14 Alkaline Phosphatase 80 Total Protein 6.7 Albumin 4.2 Triglycerides Cholesterol LDL Cholesterol Direct VLDL Cholesterol HDL Cholesterol Lipase 498.9 H TSH Urine Color Urine Appearance Urine pH Ur Specific [place] Urine Protein Urine Glucose (UA) Urine Ketones Urine Blood Urine Nitrite Ur Leukocyte Esterase Ur Squamous Epith Cells Urine Osmolality 08/19/19 08/20/19 08/20/19 17:25 05:01 05:01 WBC 12.3 H RBC 5.03 Hgb 14.0 Hct 40.3 MCV 80 MCH 27.8 MCHC 34.8 RDW 13.9 Plt Count 438 Seg Neutrophils % 76.8 VBG pH VBG pCO2 VBG HCO3 VBG Base Excess Sodium 125.8 L 123.8 L Potassium 4.1 4.1 Chloride 88 L 86 L Carbon Dioxide 26 24 Anion Gap 12 14 BUN 9 6 L Creatinine 0.47 L 0.37 L Est GFR ( Amer) > 60 > 60 Glucose 129 H 156 H Serum Osmolality Calcium 8.8 9.2 Phosphorus 3.1 Magnesium 1.6 Total Bilirubin 0.3 0.4 AST 13 L 14 Alkaline Phosphatase 79 79 Total Protein 6.6 6.6 Albumin 3.8 4.0 Triglycerides 128 Cholesterol 173.62 LDL Cholesterol Direct 102 H VLDL Cholesterol 26.0 HDL Cholesterol 52 Lipase 1153.0 H TSH Urine Color Urine Appearance Urine pH Ur Specific [place] Urine Protein Urine Glucose (UA) Urine Ketones Urine Blood Urine Nitrite Ur Leukocyte Esterase Ur Squamous Epith Cells Urine Osmolality 08/20/19 05:01 WBC RBC Hgb Hct MCV MCH MCHC RDW Plt Count Seg Neutrophils % VBG pH VBG pCO2 VBG HCO3 VBG Base Excess Sodium Potassium Chloride Carbon Dioxide Anion Gap BUN Creatinine Est GFR ( Amer) Glucose Serum Osmolality Calcium Phosphorus Magnesium Total Bilirubin AST Alkaline Phosphatase Total Protein Albumin Triglycerides Cholesterol LDL Cholesterol Direct VLDL Cholesterol HDL Cholesterol Lipase TSH 1.34 Urine Color Urine Appearance Urine pH Ur Specific [place] Urine Protein Urine Glucose (UA) Urine Ketones Urine Blood Urine Nitrite Ur Leukocyte Esterase Ur Squamous Epith Cells Urine Osmolality 08/19/19 08/19/19 13:00 13:00 Creatine Kinase < 20 L Troponin I < 0.012 Impressions: Abdomen Ultrasound 08/19/19 00:00 IMPRESSION: Dilated common bile duct measuring up to 1.3 cm in size. This is most likely related to prior cholecystectomy, and appears unchanged from 08/03/2019. However, correlation for obstructive laboratories is suggested. Echogenic liver, suggestive of hepatic steatosis. copyright 2010 [employer]- All Rights Reserved [facility] X-Ray 08/19/19 11:49 IMPRESSION: NO RADIOGRAPHIC EVIDENCE FOR ACUTE ABDOMINAL DISEASE. Assessment and Plan - Diagnosis (1) Abdominal pain Qualifiers: Abdominal location: upper abdomen, unspecified Qualified Code(s): R10.10 - Upper abdominal pain, unspecified Is this a current diagnosis for this admission?: Yes Plan: Potentially secondary to acute pancreatitis or possibly gastritis/duodenitis Lipase elevation noted on this admission and abdominal pain pattern consistent with acute peritonitis. CT abdomen pelvis done on 08/02/2019 was normal. No need to repeat abdominal CT at this time. Ultrasound showing common bile duct dilation to 1.3 cm which is expected secondary to cholecystectomy. Liver enzymes showed no evidence of cholestasis pattern. Morphine IV for pain IV Pepcid Continue IV fluids for today will likely discontinue tomorrow. (2) Hyponatremia Is this a current diagnosis for this admission?: Yes Plan: TSH and a.m. cortisol within normal limits. Lipid panel shows no significant elevation. Serum and urine osmolarity point towards SIADH especially given worsening of hyponatremia with IV fluids. May have also been complicated by poor caloric intake. Unfortunately, we will have to continue IV fluids for now given acute pancreatitis while monitoring BMP closely. Holding hydrochlorothiazide (3) Intractable nausea and vomiting Is this a current diagnosis for this admission?: Yes Plan: UDS unimpressive. No evidence of anion gap. Urinalysis showed evidence of starvation ketosis. Potential differentials include acute pancreatitis or biliary tract disease or diabetic gastroparesis. Will place on IV fluids, antiemetics including IV Reglan 08/20/2019 Symptoms improved today. Will remove n.p.o. status and start on diet. Continue antiemetics. (4) Hypertension Qualifiers: Hypertension type: essential hypertension Qualified Code(s): I10 - Ess ential (primary) hypertension Is this a current diagnosis for this admission?: Yes Plan: Lisinopril Hydrochlorothiazide held due to hyponatremia. Amlodipine started in place. (5) Diabetes mellitus type 2 in obese Is this a current diagnosis for this admission?: Yes Plan: Hold metformin in case control study is needed. Resume glyburide. Sliding scale insulin and Accu-Cheks - Time Time Spent with patient: Less than 15 minutes
[2019-08-20 16:32] LABS: ANION GAP 14 (5-19); BLOOD UREA NITROGEN 7 mg/dL (7-20); CALCIUM 9.5 mg/dL (8.4-10.2); CARBON DIOXIDE 24 mmol/L (22-30); CHLORIDE 85 mmol/L (98-107)
[2019-08-20 16:47] LABS: GLUCOSE 407 mg/dL (75-110)
[2019-08-20] MEDS: GLYBURIDE 5 MG TABLET PO SCH (17:01)
[2019-08-20] MEDS ORDERED: FUROSEMIDE INJ/PF 40 MG/4 ML SDV IV ONE (17:15)
[2019-08-20] MEDS: SODIUM CHLORIDE 1 GM TABLET PO SCH (17:35)
[2019-08-20] MEDS: TEMAZEPAM 7.5 MG CAPSULE PO PRN (21:52)
[2019-08-21] MEDS ORDERED: NORMAL SALINE 1000 ML 1,000 ML IV ONE (03:37)
[2019-08-21] MEDS ORDERED: NALOXONE HCL INJ/PF 0.4 MG/1 ML SDV IV ONE (04:00)
[2019-08-21] MEDS: SODIUM CHLORIDE 1 GM TABLET PO SCH ×2 (05:46→18:33)
[2019-08-21] MEDS: INSULIN LISPRO 100 UNIT/ML 3 ML VIAL SUBCUT SCH ×4 (06:24→23:35)
[2019-08-21] MEDS: AMLODIPINE BESYLATE 5 MG TABLET PO SCH (09:51)
[2019-08-21] MEDS: ENOXAPARIN SODIUM INJ 40 MG/0.4 ML DISP.SYRIN SUBCUT SCH (09:51)
[2019-08-21] MEDS: LISINOPRIL 10 MG TABLET PO SCH (09:53)
[2019-08-21] MEDS: GLYBURIDE 5 MG TABLET PO SCH ×2 (09:54→17:12)
[2019-08-21] MEDS: FAMOTIDINE INJ/PF 20 MG/2 ML SDV IV SCH (09:54)
[2019-08-21 10:18] LABS: ALBUMIN 3.9 g/dL (3.5-5.0); ALKALINE PHOSPHATASE 76 U/L (38-126); ANION GAP 12 (5-19); ASPARTATE AMINO TRANSFERASE 15 U/L (14-36); BILIRUBIN,DIRECT 0.3 mg/dL (0.0-0.4); BILIRUBIN,TOTAL 0.4 mg/dL (0.2-1.3); BLOOD UREA NITROGEN 12 mg/dL (7-20); CALCIUM 9.6 mg/dL (8.4-10.2); CARBON DIOXIDE 28 mmol/L (22-30); CHLORIDE 89 mmol/L (98-107); GLUCOSE 235 mg/dL (75-110); TOTAL PROTEIN 6.8 g/dL (6.3-8.2)
--- NOTE | 2019-08-21 10:45 | PDOC PROGRESS REPORT ---
Subjective Progress Note for:: 08/21/19 Subjective:: Last night, patient became hypotensive and drowsy. She was given Narcan to reverse her morphine as well as a bolus of fluids. Today, patient blood pressures improved. Patient complains about having an uneasy night as she was being woken up frequently. Patient endorses persistence of abdominal pain which he describes still as a stabbing sensation mostly propagated by eating. I discussed trial of Carafate which patient states has tried she has tried before and it helped her. Reason For Visit: HYPOTREMIA,INTRACTABLE VOMITING,ABDOMINAL PAIN, Physical Exam Vital Signs: Temp Pulse Resp BP Pulse Ox 97.6 F 83 18 144/65 H 99 08/21/19 08:36 08/21/19 08:36 08/21/19 08:36 08/21/19 08:36 08/21/19 08:36 Intake & Output 08/20/19 08/21/19 08/22/19 06:59 06:59 06:59 Intake Total 3000 1345 Balance 3000 1345 Weight 84.6 kg 87.4 kg General appearance: PRESENT: no acute distress, cooperative Neck exam: ABSENT: JVD Respiratory exam: PRESENT: symmetrical, unlabored. ABSENT: accessory muscle use, retraction, tachypnea GI/Abdominal exam: PRESENT: soft, tenderness - Mostly in upper abdomen and epigastrium. ABSENT: distended, firm, guarding, rebound, rigid Extremities exam: ABSENT: pedal edema, +1 edema Neurological exam: PRESENT: alert, awake, oriented to person, oriented to place, oriented to time Psychiatric exam: ABSENT: agitated, anxious Results Laboratory Results: 08/20/19 05:01 08/21/19 09:51 08/20/19 08/21/19 15:52 09:51 Sodium 122.7 L 128.7 L Potassium 4.0 4.0 Chloride 85 L 89 L Carbon Dioxide 24 28 Anion Gap 14 12 BUN 7 12 Creatinine 0.40 L 0.56 Est GFR ( Amer) > 60 > 60 Glucose 407 H* 235 H Calcium 9.5 9.6 Total Bilirubin 0.4 AST 15 Alkaline Phosphatase 76 Total Protein 6.8 Albumin 3.9 08/19/19 08/19/19 13:00 13:00 Creatine Kinase < 20 L Troponin I < 0.012 Impressions: Abdomen Ultrasound 08/19/19 00:00 IMPRESSION: Dilated common bile duct measuring up to 1.3 cm in size. This is most likely related to prior cholecystectomy, and appears unchanged from 08/03/2019. However, correlation for obstructive laboratories is suggested. Echogenic liver, suggestive of hepatic steatosis. copyright 2010 [employer]- All Rights Reserved [facility] X-Ray 08/19/19 11:49 IMPRESSION: NO RADIOGRAPHIC EVIDENCE FOR ACUTE ABDOMINAL DISEASE. Assessment and Plan - Diagnosis (1) Abdominal pain Qualifiers: Abdominal location: upper abdomen, unspecified Qualified Code(s): R10.10 - Upper abdominal pain, unspecified Is this a current diagnosis for this admission?: Yes Plan: Potentially secondary to gastritis or duodenitis. Also possible acute pancreatitis though the lipase elevation was somewhat obscure especially given that he was not elevated on the last visit when patient was experiencing the same type of pain. Also no profound risk factors for developing pancreatitis. CT abdomen pelvis done on 08/02/2019 was normal. No need to repeat abdominal CT at this time. Ultrasound showing common bile duct dilation to 1.3 cm which is expected finding secondary to cholecystectomy. Liver enzymes showed no evidence of cholestasis pattern. Started on Protonix and Carafate. I will hold off on further IV fluids for now. (2) Hyponatremia Is this a current diagnosis for this admission?: Yes Plan: TSH and a.m. cortisol within normal limits. Lipid panel shows no significant elevation. Serum and urine osmolarity point towards SIADH especially given worsening of hyponatremia with IV fluids. Possibly secondary to pain or other etiology. May have also been complicated by poor caloric intake. I gave patient a dose of Lasix IV and started on salt tablets and fluid restr iction yesterday afternoon with improvement of her hyponatremia to a corrected value of 130 today. Continue holding hydrochlorothiazide (3) Intractable nausea and vomiting Is this a current diagnosis for this admission?: Yes Plan: Resolved at this time. Suspecting gastritis or duodenitis versus less likely pancreatitis. Tolerating diet now. (4) Hypertension Qualifiers: Hypertension type: essential hypertension Qualified Code(s): I10 - Essential (primary) hypertension Is this a current diagnosis for this admission?: Yes Plan: Lisinopril and amlodipine. Hydrochlorothiazide held due to hyponatremia. (5) Diabetes mellitus type 2 in obese Is this a current diagnosis for this admission?: Yes Plan: Continue glyburide. Resume metformin. Patient refusing sliding scale coverage. Continue Accu-Cheks. - Time Time Spent with patient: 15-24 minutes
[2019-08-21] MEDS: PANTOPRAZOLE SODIUM 40 MG TABLET.DR PO SCH (11:49)
[2019-08-21] MEDS: METFORMIN HCL 500 MG TABLET PO SCH ×2 (11:49→17:12)
[2019-08-21] MEDS: SUCRALFATE 1 GM TABLET PO SCH ×3 (11:49→21:49)
[2019-08-21] MEDS ORDERED: OXYCODONE-ACETAMINOPHEN 5-325 MG TABLET PO ONE (18:00)
[2019-08-21] MEDS: MAG HYDROX/AL HYDROX/SIMETH SUSP 30 ML UDCUP PO SCH (21:49)
[2019-08-21] MEDS: PROMETHAZINE HCL INJ 25 MG/1 ML VIAL IV PRN (21:54)
[2019-08-22] MEDS ORDERED: KETOROLAC TROMETHAMINE INJ/PF 30 MG/1 ML SDV IV PRN (00:13)
[2019-08-22 05:13] LABS: ANION GAP 10 (5-19); BLOOD UREA NITROGEN 13 mg/dL (7-20); CALCIUM 9.5 mg/dL (8.4-10.2); CARBON DIOXIDE 26 mmol/L (22-30); CHLORIDE 97 mmol/L (98-107); GLUCOSE 110 mg/dL (75-110); POTASSIUM 3.8 mmol/L (3.6-5.0)
[2019-08-22] MEDS: INSULIN LISPRO 100 UNIT/ML 3 ML VIAL SUBCUT SCH ×4 (05:51→23:38)
[2019-08-22] MEDS: PANTOPRAZOLE SODIUM 40 MG TABLET.DR PO SCH (05:52)
[2019-08-22] MEDS: SODIUM CHLORIDE 1 GM TABLET PO SCH (05:53)
[2019-08-22] MEDS: GLYBURIDE 5 MG TABLET PO SCH ×2 (08:40→17:04)
[2019-08-22] MEDS: SUCRALFATE 1 GM TABLET PO SCH ×4 (08:41→21:30)
[2019-08-22] MEDS: METFORMIN HCL 500 MG TABLET PO SCH ×2 (08:41→16:54)
[2019-08-22] MEDS: MAG HYDROX/AL HYDROX/SIMETH SUSP 30 ML UDCUP PO SCH ×4 (08:52→21:31)
[2019-08-22] MEDS: ENOXAPARIN SODIUM INJ 40 MG/0.4 ML DISP.SYRIN SUBCUT SCH (09:04)
[2019-08-22] MEDS: AMLODIPINE BESYLATE 5 MG TABLET PO SCH ×2 (09:07→17:04)
[2019-08-22] MEDS: LISINOPRIL 10 MG TABLET PO SCH (09:07)
--- NOTE | 2019-08-22 11:00 | PDOC PROGRESS REPORT ---
Subjective Progress Note for:: 08/22/19 Subjective:: Patient still having some abdominal pain yesterday night which she thinks responded to Toradol. She was able to tolerate breakfast this morning without any significant pain at the time of interview. Endorses that she has had a good amount of weight loss in the past year but states that it was intentional because she changed her diet and does not eat sweets anymore in order to control her diabetes better. Reason For Visit: HYPOTREMIA,INTRACTABLE VOMITING,ABDOMINAL PAIN, Physical Exam Vital Signs: Temp Pulse Resp BP Pulse Ox 98.3 F 94 14 163/67 H 98 08/22/19 08:11 08/22/19 08:11 08/22/19 08:11 08/22/19 08:11 08/22/19 08:11 Intake & Output 08/21/19 08/22/19 08/23/19 06:59 06:59 06:59 Intake Total 1345 1951 Balance 1345 1951 Weight 87.4 kg 86.6 kg General appearance: PRESENT: no acute distress, cooperative, obese. ABSENT: disheveled, hard of hearing Neck exam: ABSENT: JVD Respiratory exam: PRESENT: symmetrical, unlabored. ABSENT: accessory muscle use, retraction, tachypnea GI/Abdominal exam: PRESENT: normal bowel sounds, soft, tenderness - Right upper quadrant mild. ABSENT: rebound, rigid Neurological exam: PRESENT: alert, awake, oriented to person, oriented to place, oriented to time Results Laboratory Results: 08/20/19 05:01 08/22/19 04:23 08/22/19 08/22/19 04:23 04:23 Sodium 132.8 L Potassium 3.8 Chloride 97 L Carbon Dioxide 26 Anion Gap 10 BUN 13 Creatinine 0.52 Est GFR ( Amer) > 60 Glucose 110 Calcium 9.5 Lipase 202.0 08/19/19 08/19/19 13:00 13:00 Creatine Kinase < 20 L Troponin I < 0.012 Impressions: Abdomen Ultrasound 08/19/19 00:00 IMPRESSION: Dilated common bile duct measuring up to 1.3 cm in size. This is most likely related to prior cholecystectomy, and appears unchanged from 08/03/2019. However, correlation for obstructive laboratories is suggested. Echogenic liver, suggestive of hepatic steatosis. copyright 2011 [employer]- All Rights Reserved [facility] X-Ray 08/19/19 11:49 IMPRESSION: NO RADIOGRAPHIC EVIDENCE FOR ACUTE ABDOMINAL DISEASE. Assessment and Plan - Diagnosis (1) Abdominal pain Qualifiers: Abdominal location: upper abdomen, unspecified Qualified Code(s): R10.10 - Upper abdominal pain, unspecified Is this a current diagnosis for this admission?: Yes Plan: Likely secondary to gastritis/duodenitis. At this point my suspicion for pancreatitis is low given normal lipase. Uncertain why the awkward changes in lipase levels. CT abdomen pelvis done on 08/02/2019 was normal without any peripancreatic inflammation. Ultrasound showing common bile duct dilation to 1.3 cm which is expected finding secondary to cholecystectomy. Liver enzymes showed no evidence of cholestasis pattern. Continue Protonix. I have informed patient to request to Carafate and Maalox before meals. Currently tolerating diet. Monitor for today. (2) Hyponatremia Is this a current diagnosis for this admission?: Yes Plan: TSH and a.m. cortisol within normal limits. Lipid panel shows no significant elevation. Serum and urine osmolarity point towards SIADH especially given worsening of hyponatremia with IV fluids. Possibly secondary to pain or other etiology. May have also been complicated by poor caloric intake. Sodium level continues to improve to 133 today. Will check BMP again tomorrow morning. Continue sodium chloride tablets for now but decrease to daily dosing. Continue holding hydrochlorothiazide (3) Intractable nausea and vomiting Is this a current diagnosis for this admission?: Yes Plan: Resolved at this time. Suspecting gastritis/duodenitis and less likely pancreatitis. Tolerating diet now. (4) Hypertension Qualifiers: Hypertension type: essential hypertension Qualified Code(s): I10 - Essential (primary) hypertension Is this a current diagnosis for this admission?: Yes Plan: Lisinopril and amlodipine. Amlodipine dose increased to every 12. Hydrochlorothiazide stopped due to hyponatremia. (5) Diabetes mellitus type 2 in obese Is this a current diagnosis for this admission?: Yes Plan: Continue glyburide and metformin. sliding scale coverage if patient is agreeable. Continue Accu-Cheks. Hemoglobin A1c of 7.2 indicating good diabetes control. - Time Time Spent with patient: Less than 15 minutes
[2019-08-22] MEDS: POLYETHYLENE GLYCOL 3350 POWDER 17 GM/1 PACKET PO SCH ×2 (13:11→21:30)
[2019-08-22] MEDS: OXYCODONE HCL IR 5 MG TABLET PO PRN (19:46)
[2019-08-23] MEDS: OXYCODONE HCL IR 5 MG TABLET PO PRN (04:26)
[2019-08-23 05:57] LABS: ANION GAP 7 (5-19); BLOOD UREA NITROGEN 16 mg/dL (7-20); CALCIUM 9.3 mg/dL (8.4-10.2); CARBON DIOXIDE 30 mmol/L (22-30); CHLORIDE 95 mmol/L (98-107); GLUCOSE 107 mg/dL (75-110); POTASSIUM 4.6 mmol/L (3.6-5.0)
[2019-08-23] MEDS: AMLODIPINE BESYLATE 5 MG TABLET PO SCH (06:01)
[2019-08-23] MEDS: PANTOPRAZOLE SODIUM 40 MG TABLET.DR PO SCH (06:01)
[2019-08-23] MEDS: INSULIN LISPRO 100 UNIT/ML 3 ML VIAL SUBCUT SCH (06:52)
[2019-08-23] MEDS: METFORMIN HCL 500 MG TABLET PO SCH (07:35)
[2019-08-23] MEDS: SUCRALFATE 1 GM TABLET PO SCH (07:35)
[2019-08-23] MEDS: MAG HYDROX/AL HYDROX/SIMETH SUSP 30 ML UDCUP PO SCH (07:35)
[2019-08-23] MEDS: GLYBURIDE 5 MG TABLET PO SCH (07:36)
[2019-08-23] MEDS: LISINOPRIL 10 MG TABLET PO SCH (09:02)
[2019-08-23 09:16] VITALS: BP 154/74
[2019-08-23] MEDS ORDERED: SODIUM CHLORIDE 1 GM TABLET PO SCH (10:00)
--- NOTE | 2019-08-23 10:32 | PDOC DISCHARGE SUMMARY ---
Impression - Admit/DC Date/PCP Admission Date/Primary Care Provider: 08/19/19 18:26 Discharge Date: 08/23/19 - Discharge Diagnosis (1) Hyponatremia Is this a current diagnosis for this admission?: Yes (2) Gastritis/duodenitis Is this a current diagnosis for this admission?: Yes (3) Abdominal pain Is this a current diagnosis for this admission?: Yes (4) Intractable nausea and vomiting Is this a current diagnosis for this admission?: Yes (5) Hypertension Is this a current diagnosis for this admission?: Yes (6) Diabetes mellitus type 2 in obese Is this a current diagnosis for this admission?: Yes - Additional Information Resuscitation Status: Full Code Discharge Diet: As Tolerated Referrals: [facility] [Outside] SHRUTHI EUBANKS MD [ACTIVE STAFF] - Prescriptions: Sucralfate [Carafate 1 gm Tablet] 1 gm PO ACHS 30 Days tablet Mag Hydrox/Al Hydrox/Simeth [Maalox Plus Susp 30 Udcup] 30 ml PO AC 20 Days #60 udc Amlodipine Besylate [Norvasc 5 mg Tablet] 5 mg PO Q12A 30 Days tablet Pantoprazole Sodium [Protonix [address] Tablet] 40 mg PO Q6AM 30 Days tablet. Sodium Chloride [Sodium Chloride 1 gm Tablet] 1 gm PO DAILY #7 tablet Tramadol HCl [Ultram] 50 mg PO BIDP PRN #7 tablet PRN Reason: Home Medications: Glyburide/Metformin HCl [Glyburide-Metformin 2.5-500 mg] 2 tab PO BID 08/19/19 Lisinopril [Prinivil] 20 mg PO DAILY 08/19/19 Amlodipine Besylate [Norvasc 5 mg Tablet] 5 mg PO Q12A 30 Days tablet 08/23/19 Mag Hydrox/Al Hydrox/Simeth [Maalox Plus Susp 30 Udcup] 30 ml PO AC 20 Days #60 udc 08/23/19 Pantoprazole Sodium [Protonix [address] Tablet] 40 mg PO Q6AM 30 Days tablet. 08/23/19 Sodium Chloride [Sodium Chloride 1 gm Tablet] 1 gm PO DAILY #7 tablet 08/23/19 Sucralfate [Carafate 1 gm Tablet] 1 gm PO ACHS 30 Days tablet 08/23/19 Tramadol HCl [Ultram] 50 mg PO BIDP PRN #7 tablet 08/23/19 History of Present Illiness History of Present Illness: YAZMIN COON is a 64 year old female with a history of type 2 diabetes mellitus, hypertension who presents to the hospital with unresolved nausea and vomiting as well as right upper quadrant and epigastric pain. Her symptoms have been persisting for close to a month now. Complains of several episodes of nonbilious nonbloody vomiting which worsened yesterday as well as some episodes of dry retching. Abdominal pain is described as a stabbing pain radiating to the back. Denies any fever or chills. Denies any urinary symptoms. Has had poor oral intake due to persistence of nausea and vomiting. Patient evaluated in the ER on 08/02/2019 for similar complaints at that time had no elevation in lipase. Hospital Course Hospital Course: Patient was admitted for evaluation of upper abdominal pain. Vital signs were stable however lab work demonstrated hyponatremia of 125. Patient received IV fluids with normal saline and antiemetics. However with IV fluids, patient's hyponatremia worsened to 122. Serum osmolarity as well as urine osmolarity and urine sodium levels were consistent with SIADH. Patient is SIADH was suspected to be from pain. Other potential etiology for hyponatremia was suspected to be poor caloric intake due to intractable vomiting and hydrochlorothiazide which was discontinued. Patient subsequently placed on amlodipine in place of hydrochlorothiazide. Patient was placed on fluid restriction and started on sodium chloride tablets with significant improvement of her sodium levels subsequently. Patient's vomiting improved with antiemetics and patient was able to tolerate her diet very sufficiently. Abdominal pain was investigated. Initially, lipase levels showed to be very fluctuant going from 400s to over 1000 in only a few hours. Patient had just had a recent CT of her abdomen and pelvis which showed no peripancreatic inflammation. There was initial suspicion for acute pancreatitis and she was given IV fluids and pain medication. However, upon further evaluation acute pancreatitis was thought to be less likely the etiology given no improvement of her pain and given the fact that her lipase level was normal during her last ER presentation on 08/02/2019 at which time she was experiencing the same type of pain and her CT was also negative. Gastritis/duodenitis was thought to be the etiology especially given that she experienced improvement with Maalox and Carafate. She was started on Protonix as well. Her symptoms improved and she was discharged in stable conditions to follow-up with a sales operations assistant for which she is planning to follow-up with Dr. Eubanks for further care and possible endoscopic evaluation. Physical Exam Vital Signs: Temp Pulse Resp BP Pulse Ox 97.5 F 78 20 154/74 H 100 08/23/19 09:15 08/23/19 09:15 08/23/19 09:15 08/23/19 09:15 08/23/19 09:15 Intake & Output 08/22/19 08/23/19 08/24/19 06:59 06:59 06:59 Intake Total 1950 840 Balance 1950 840 Weight 86.6 kg 87.5 kg General appearance: PRESENT: no acute distress, cooperative Neck exam: ABSENT: JVD Respiratory exam: PRESENT: clear to auscultation manuela Cardiovascular exam: PRESENT: +S1, +S2 GI/Abdominal exam: PRESENT: soft, tenderness - mild-mod ruq. ABSENT: firm, guarding, rebound, rigid Results Laboratory Results: WBC 12.3 10^3/uL (4.0-10.5) H 08/20/19 05:01 RBC 5.03 10^6/uL (3.72-5.28) 08/20/19 05:01 Hgb 14.0 g/dL (12.0-15.5) 08/20/19 05:01 Hct 40.3 % (36.0-47.0) 08/20/19 05:01 MCV 80 fl (80-97) 08/20/19 05:01 MCH 27.8 pg (27.0-33.4) 08/20/19 05:01 MCHC 34.8 g/dL (32.0-36.0) 08/20/19 05:01 RDW 13.9 % (11.5-14.0) 08/20/19 05:01 Plt Count 438 10^3/uL (150-450) 08/20/19 05:01 Lymph % (Auto) 13.9 % (13-45) 08/20/19 05:01 [place] % (Auto) 7.1 % (3-13) 08/20/19 05:01 Eos % (Auto) 1.5 % (0-6) 08/20/19 05:01 Baso % (Auto) 0.7 % (0-2) 08/20/19 05:01 Absolute Neuts (auto) 9.4 10^3/uL (1.7-8.2) H 08/20/19 05:01 Absolute Lymphs (auto) 1.7 10^3/uL (0.5-4.7) 08/20/19 05:01 Absolute Monos (auto) 0.9 10^3/uL (0.1-1.4) 08/20/19 05:01 Absolute Eos (auto) 0.2 10^3/uL (0.0-0.6) 08/20/19 05:01 Absolute Basos (auto) 0.1 10^3/uL (0.0-0.2) 08/20/19 05:01 Seg Neutrophils % 76.8 % (42-78) 08/20/19 05:01 VBG pH 7.39 (7.30-7.42) 08/19/19 15:44 VBG pCO2 41.6 mmHg (35-63) 08/19/19 15:44 VBG HCO3 24.3 mmol/L (20-32) 08/19/19 15:44 VBG Base Excess -0.7 mmol/L 08/19/19 15:44 Sodium 132.4 mmol/L (137-145) L 08/23/19 04:43 Potassium 4.6 mmol/L (3.6-5.0) 08/23/19 04:43 Chloride 95 mmol/L (98-107) L 08/23/19 04:43 Carbon Dioxide 30 mmol/L (22-30) 08/23/19 04:43 Anion Gap 7 (5-19) 08/23/19 04:43 BUN 16 mg/dL (7-20) 08/23/19 04:43 Creatinine 0.48 mg/dL (0.52-1.25) L 08/23/19 04:43 Est GFR ( Amer) > 60 (>60) 08/23/19 04:43 Est GFR (MDRD) Non-Af > 60 (>60) 08/23/19 04:43 Glucose 107 mg/dL (75-110) 08/23/19 04:43 POC Glucose 130 mg/dL (70-110) H 08/23/19 06:31 Hemoglobin A1c % 7.2 % (4.7-6.0) H 08/20/19 05:01 Serum Osmolality 256 mOsm/kg (275-301) L 08/19/19 13:00 Calcium 9.3 mg/dL (8.4-10.2) 08/23/19 04:43 Phosphorus 3.1 mg/dL (2.5-4.5) 08/20/19 05:01 Magnesium 1.6 mg/dL (1.6-2.3) 08/20/19 05:01 Total Bilirubin 0.4 mg/dL (0.2-1.3) 08/21/19 09:51 Direct Bilirubin 0.3 mg/dL (0.0-0.4) 08/21/19 09:51 Neonat Total Bilirubin Not Reportable 08/21/19 09:51 Neonat Direct Bilirubin Not Reportable 08/21/19 09:51 Neonat Indirect Bili Not Reportable 08/21/19 09:51 AST 15 U/L (14-36) 08/21/19 09:51 ALT 13 U/L (<35) 08/21/19 09:51 Alkaline Phosphatase 76 U/L (38-126) 08/21/19 09:51 Creatine Kinase < 20 U/L (30-135) L 08/19/19 13:00 Troponin I < 0.012 ng/mL 08/19/19 13:00 Total Protein 6.8 g/dL (6.3-8.2) 08/21/19 09:51 Albumin 3.9 g/dL (3.5-5.0) 08/21/19 09:51 Triglycerides 128 mg/dL (<150) 08/20/19 05:01 Cholesterol 173.62 mg/dL (0-200) 08/20/19 05:01 LDL Cholesterol Direct 102 mg/dL (<100) H 08/20/19 05:01 VLDL Cholesterol 26.0 mg/dL (10-31) 08/20/19 05:01 HDL Cholesterol 52 mg/dL (>40) 08/20/19 05:01 Lipase 202.0 U/L (23-300) 08/22/19 04:23 TSH 1.34 uIU/mL (0.47-4.68) 08/20/19 05:01 Cortisol AM Sample 12.90 ug/dL (4.46-22.7) 08/20/19 05:01 Urine Color YELLOW 08/19/19 12:08 Urine Appearance SLIGHTLY-CLOUDY 08/19/19 12:08 Urine pH 7.0 (5.0-9.0) 08/19/19 12:08 Ur Specific [place] 1.017 08/19/19 12:08 Urine Protein NEGATIVE mg/dL (NEGATIVE) 08/19/19 12:08 Urine Glucose (UA) NEGATIVE mg/dL (NEGATIVE) 08/19/19 12:08 Urine Ketones 80 mg/dL (NEGATIVE) H 08/19/19 12:08 Urine Blood NEGATIVE (NEGATIVE) 08/19/19 12:08 Urine Nitrite NEGATIVE (NEGATIVE) 08/19/19 12:08 Urine Bilirubin NEGATIVE (NEGATIVE) 08/19/19 12:08 Urine Urobilinogen NEGATIVE mg/dL (<2.0) 08/19/19 12:08 Ur Leukocyte Esterase SMALL (NEGATIVE) H 08/19/19 12:08 Urine WBC 1-5 /HPF 08/19/19 12:08 Ur Squamous Epith Cells MANY /HPF 08/19/19 12:08 Urine Mucus 1+ 08/19/19 12:08 Urine Osmolality 639 mOsm/kg (300-900) 08/19/19 12:08 Urine Sodium 155 mmol/L (30-90) H 08/19/19 12:08 Urine Ascorbic Acid NEGATIVE (NEGATIVE) 08/19/19 12:08 Urine Opiates Screen NEGATIVE 08/19/19 12:08 Urine Methadone Screen NEGATIVE 08/19/19 12:08 Ur Barbiturates Screen NEGATIVE 08/19/19 12:08 Ur Phencyclidine Scrn NEGATIVE 08/19/19 12:08 Ur Amphetamines Screen NEGATIVE 08/19/19 12:08 U Benzodiazepines Scrn UNCONFIRMED POSITIVE 08/19/19 12:08 Urine Cocaine Screen NEGATIVE 08/19/19 12:08 U Marijuana (THC) Screen NEGATIVE 08/19/19 12:08 08/19/19 13:00 Troponin I < 0.012 Impressions: Abdomen Ultrasound 08/19/19 00:00 IMPRESSION: Dilated common bile duct measuring up to 1.3 cm in size. This is most likely related to prior cholecystectomy, and appears unchanged from 08/03/2019. However, correlation for obstructive laboratories is suggested. Echogenic liver, suggestive of hepatic steatosis. copyright 2011 [employer]- All Rights Reserved KUB X-Ray 08/19/19 11:49 IMPRESSION: NO RADIOGRAPHIC EVIDENCE FOR ACUTE ABDOMINAL DISEASE. Plan Time Spent: Less than 30 Minutes Stroke Is this a Stroke Patient?: No Acute Heart Failure - Is this a Heart Failure Patient?: No
== END 2019-08-23 11:36 | disposition home or self-care (01) | DRG 641 ==
LOC: ER 10:46 → EH 18:26 → 5 20:22 → 4W 08-23 04:22
PROVIDERS: ADMIT Internal Medicine; ATTEND Internal Medicine
DX: E87.1 Hypo-osmolality and hyponatremia (principal); K29.80 Duodenitis without bleeding; K29.70 Gastritis, unspecified, without bleeding; E11.9 Type 2 diabetes mellitus without complications; I95.9 Hypotension, unspecified; I10 Essential (primary) hypertension; M19.90 Unspecified osteoarthritis, unspecified site; F17.210 Nicotine dependence, cigarettes, uncomplicated; Z90.49 Acquired absence of other specified parts of digestive tract; Z90.710 Acquired absence of both cervix and uterus; Z83.3 Family history of diabetes mellitus; Z82.49 Family history of ischemic heart disease and other diseases of the circulatory system; Z88.8 Allergy status to other drugs, medicaments and biological substances; Z79.84 Long term (current) use of oral hypoglycemic drugs
CPT/HCPCS: 36415; 74018; 76705; 80048; 80053; 80061; 80307; 81001; 82533; 82550; 82803; 82962; 83036; 83690; 83735; 83930; 83935; 84100; 84300; 84443; 84484; 85025; 87040; 87070; 93976; 96361; 96365; 96374; 96375; 99285; J0696; J1815; J1885; J1940; J2060; J2270; J2310; J2550; J2765; J3490; J7030; S0028; S0119

== ENCOUNTER → 2020-02-28 | Outpatient (CLI) | payer MEDICAID ==
--- NOTE | 2020-02-28 14:31 | RADIOLOGY REPORT (SQ) ---
EXAM DESCRIPTION: CHEST PA/LATERAL IMAGES COMPLETED DATE/TIME: 02/28/2020 2:22 pm REASON FOR STUDY: TOBACCO USE COMPARISON: None. EXAM PARAMETERS: NUMBER OF VIEWS: two views TECHNIQUE: Digital Frontal and Lateral radiographic views of the chest acquired. RADIATION DOSE: NA LIMITATIONS: none FINDINGS: LUNGS AND PLEURA: No opacities, masses or pneumothorax. No pleural effusion. MEDIASTINUM AND HILAR STRUCTURES: No masses or contour abnormalities. HEART AND VASCULAR STRUCTURES: Heart normal size. No evidence for failure. BONES: No acute findings. HARDWARE: None in the chest. OTHER: No other significant finding. IMPRESSION: NO SIGNIFICANT RADIOGRAPHIC FINDING IN THE CHEST. TECHNICAL DOCUMENTATION: JOB ID: [id number] 2010 [employer]- All Rights Reserved Reading location - IP/workstation name: [email or web address]
== END ==
LOC: RAD 14:07
PROVIDERS: ATTEND Physician Assistant
DX: Z72.0 Tobacco use (principal)
CPT/HCPCS: 71046